=== PATIENT | male | born 1955 | race Caucasian/White ===

== ENCOUNTER 2017-05-01 19:44 | Emergency (ER) | payer OTHER ==
[2017-05-01] MEDS ORDERED: KETOROLAC TROMETHAMINE 30 MG/1ML VIAL ONE (21:37)
[2017-05-01] MEDS ORDERED: KETOROLAC TROMETHAMINE 30 MG/1ML VIAL IVP ONE (21:47)
[2017-05-01 22:55] VITALS: BP 127/83
--- NOTE | 2017-05-01 23:03 | ED Physician Documentation ---
Fall - HISTORIAN Historian: patient, child - HPI Stated Complaint: Right groin/leg pain Chief Complaint: Fall Additional Information: fall fr ladder 2 wks ago better then more activity past two days sig rt groin pain candida on ambulation-getting up or sitting down and standing up. pt more active sprayed field yesterday w/ gator-hardly walk last noct Where: home Context: lost balance r: moderate Associated Symptoms:: no loss of consciousness Location of Pain/Injury: lower back, lower extremity, hip (RT). denies: head, neck, face Injury to Right Extremity: hip, thigh Injury to Left Extremity: none Further Comments: yes (PT EXIBITS EXQ PAIN ON GETTING UP AND SITTING DOWN IN CHAIR-POINTS TO GROIN) - ROS CONST: no problems NEURO: denies: dizziness MS/SKIN/LYMPH: back pain. denies: weakness, numbness, ankle swelling, leg swelling EYES/ENT: none CVS/RESP: none. denies: chest pain GI/: denies: problems urinating, nausea, vomiting - PAST HX Past History: A-Fib (CARDIOVERSION NOW ON SOTALOL) Allergies/Adverse Reactions: Allergies Allergy/AdvReac Type Severity Reaction Status Date / Time No Known Allergies Allergy Verified 05/01/17 20:05 Home Medications: Ambulatory Orders Medication Instructions Recorded Aspirin [Leslie] 325 mg PO QDAY 05/01/17 Atorvastatin Calcium 20 mg PO QDAY 05/01/17 Metoprolol Tartrate [Lopressor] 25 mg PO DAILY 05/01/17 Omeprazole 20 mg PO QDAY 05/01/17 Sotalol HCl [Sotalol] 80 mg PO BID 05/01/17 - SOCIAL HX Smoking History: non-smoker Alcohol Use: heavy (1 PT BOURB[place] PER DAY) Drug Use: none - FAMILY HX Family History: no significant history - VITAL SIGNS Vital Signs: Vital Signs Temp Pulse Resp BP Pulse Ox 98.0 F 72 18 169/96 96 05/01/17 20:00 05/01/17 20:00 05/01/17 20:00 05/01/17 20:00 05/01/17 20:00 - REVIEWED ASSESSMENTS Nursing Assessment Reviewed: Yes ED Results Lab/Radiology - Radiology Radiology Impressions: xray no fx seen but clin compatible w/ occ fx pelvis - Orders Orders: ED Orders Category Date Time Status BILAT HIPS 2V (W/PEL IF DONE) [RAD] Stat Exams 05/01/17 Ordered PELVIS AP 1 OR 2 VIEWS [RAD] Stat Exams 05/01/17 Ordered Ketorolac Tromethamine [Toradol] Med 05/01/17 21:37 Discontinued 30 mg .ROUTE .STK-MED ONE Fall Physical Exam - Physical Exam General Appearance: moderate distress Head: non-tender Neck: non-tender ENT: nml external inspection Resp/CVS: chest non-tender, no ecchymosis, breath sounds nml, no resp. distress , heart sounds nml. No: decreased breath sounds, wheezes, rales Abdomen: soft, non-tender Neuro: oriented x3, CN's nml as tested, sensation nml, motor nml, mood/affect nml Skin: color nml, no rash. No: cyanosis, diaphoresis, pallor, ecchymosis Back: CVA tenderness (R), muscle spasm Extremities: No: pelvis stable, hips non-tender (RT HIP GROIN TENDER W/ MOVEMENT AND PALPATION), unable to bear weight (BUT HURTS) Joint: No: nml ROM (NO HERNIA SEEN FELT PULSES OK) - Sandra Coma Score Eyes Open: Spontaneous Speech: Oriented Motor: Localizes to Pain Discharge Clincal Impression: suspect fx poelvis Referrals: Saniya Delgado MD [Primary Care Provider] - 2 Days Home Medications: Ambulatory Orders Aspirin [Leslie] 325 mg PO QDAY 05/01/17 Atorvastatin Calcium 20 mg PO QDAY 05/01/17 Metoprolol Tartrate [Lopressor] 25 mg PO DAILY 05/01/17 Omeprazole 20 mg PO QDAY 05/01/17 Sotalol HCl [Sotalol] 80 mg PO BID 05/01/17 Comments: home meds tx as fx f/u w/orthopedics or pcp pr rted prn Condition: Good Disposition: 01 HOME, SELF-CARE Decision to Admit: NO Decision Time: 23:02
--- NOTE | 2017-05-02 07:20 | Diagnostic Imaging Report ---
BETH RICH~ [facility] [address] [facility] [address] ~ ~ ~ ~ Report Submission Date: May 01, 2017 10:38:58 PM CDT Patient ~ Study Name: MG ROJAS ~ Date: May 01, 2017 10:11:43 PM CDT ~ Modality Type: CR Gender: M ~ Description: PELVIS : 57 ~ Institution: [facility] Physician: BETH RICH ~ ~ ~ ~ Bilateral hips with AP pelvis, 5 images History: Fall, injury, pain Findings: The osseous, joint and soft tissue structures are normal. Impression: Normal. ~ Electronically signed on May 01, 2017 10:38:58 PM CDT by: Salvatore MAX
== END 2017-05-01 23:00 | disposition home or self-care (01) ==
LOC: ED 19:44
DX: M25.551 Pain in right hip (principal)
CPT/HCPCS: 73521; J1885; S1016

== ENCOUNTER 2017-10-02 06:23 | Emergency (ER) | payer OTHER ==
--- NOTE | 2017-10-02 06:51 | ED Physician Documentation ---
Abdominal Pain - HISTORIAN Historian: friend - HPI Stated Complaint: LLQ abdominal pain Chief Complaint: Abdominal Pain Onset: days ago (lastpmate chili yest pain onset then ate grapes last noct- thought that would lpush it through) Duration: waxing, waning Timing: worse Context: denies: out of country travel, bad food, recent trauma Severity: moderate Quality: pain, sharp Associated Symptoms: none - ROS CONST: no problems GI/: none EYES/ENT: denies: problems with vision MS/SKIN/LYMPH: none NEURO/PSYCH: none - SOCIAL HX Smoking History: non-smoker Alcohol Use: occasionally Drug Use: none - FAMILY HX Family History: no significant history - PAST HX Past History: diverticulitis (at fib resolved now hi cholesterol gerd) - REVIEWED ASSESSMENTS Nursing Assessment Reviewed: Yes Vitals Reviewed: Yes <Angel Estrada - Last Filed: 10/02/17 06:50> <ИВАН RODRIGEZ - Last Filed: 10/02/17 07:59> - HPI Additonal Information: hx diverticular disease but this abd pain mid lateral flank-2 good bms yesterday -normal (Angel Estrada) - PAST HX Home Medications: Ambulatory Orders Medication Instructions Recorded Aspirin [Leslie] 325 mg PO QDAY 05/01/17 Atorvastatin Calcium 20 mg PO QDAY 05/01/17 Metoprolol Tartrate [Lopressor] 25 mg PO DAILY 05/01/17 Omeprazole 20 mg PO QDAY 05/01/17 Allergies/Adverse Reactions: Allergies Allergy/AdvReac Type Severity Reaction Status Date / Time No Known Allergies Allergy Verified 10/02/17 06:35 - VITAL SIGNS Vital Signs: Vital Signs Temp Pulse Resp BP Pulse Ox 81 20 137/78 95 10/02/17 06:25 10/02/17 06:25 10/02/17 06:25 10/02/17 06:25 Progress <Angel Estrada - Last Filed: 10/02/17 06:50> <ИВАН RODRIGEZ - Last Filed: 10/02/17 07:59> - Progress Progress: Reviewed lab and xray results with patient. Reviewed discharge instructions including clear liquid diet, walking, over the counter gas medication. Verbalized understanding. (ИВАН RODRIGEZ) ED Results Lab/Radiology <Angel Estrada - Last Filed: 10/02/17 06:50> <RAINИВАН - Last Filed: 10/02/17 07:59> - Lab Results Lab Results: Lab Results 10/02/17 10/02/17 07:05 07:05 WBC 10.40 K/ul K/ul (4.00-12.00) RBC 4.81 M/ul M/ul (3.90-5.20) Hgb 14.5 g/dL g/dL (12.0-18.0) Hct 43.9 % % (37.0-53.0) MCV 91.3 fl fl (80.0-100.0) MCH 30.2 pg pg (28.0-34.0) MCHC 33.1 g/dL g/dL (30.0-36.0) RDW 13.7 % % (11.3-14.3) Plt Count 237 K/mm3 K/mm3 (130-400) Neut % (Auto) 75.7 % % (39.0-79.0) Lymph % (Auto) 13.6 % L % (16.0-50.0) [place] % (Auto) 6.0 % % (0.0-11.0) Eos % (Auto) 2.6 % % (0.0-6.8) Baso % (Auto) 0.4 (0.0-1.5) Neut # (Auto) 7.9 # k/uL H # k/uL (1.4-7.7) Lymph # (Auto) 1.4 # k/uL # k/uL (0.6-4.0) [place] # (Auto) 0.6 # k/uL # k/uL (0.0-0.9) Eos # (Auto) 0.3 # k/uL # k/uL (0.0-0.6) Baso # (Auto) 0.0 # k/uL # k/uL (0.0-0.5) Reactive Lymphs % 1.7 % % (0.0-5.0) Reactive Lymphs # 0.2 # k/uL # k/uL (0.0-0.8) Sodium 132 mmol/L L mmol/L (136-145) Potassium 3.9 mmol/L mmol/L (3.5-5.1) Chloride 96 mmol/L L mmol/L (98-107) Carbon Dioxide 30 mmol/L mmol/L (22-30) BUN 9 mg/dL mg/dL (9-20) Creatinine 0.80 mg/dL mg/dL (0.66-1.25) Estimated Creat Clear 189 Est GFR ( Amer) > 60 (60 - ) Est GFR (Non-Af Amer) > 60 (60 - ) Glucose 114 mg/dL H mg/dL (74-106) Calcium 8.7 mg/dL mg/dL (8.4-10.2) Total Bilirubin 0.9 mg/dL mg/dL (0.2-1.3) AST 22 U/L U/L (15-46) ALT 41 U/L U/L (13-69) Alkaline Phosphatase 98 U/L U/L (38-126) Total Protein 6.9 g/dL g/dL (6.3-8.2) Albumin 3.7 g/dL g/dL (3.5-5.0) - Radiology Radiology Impressions: HISTORY: 62-year-old male with left lower abdominal pain, history of diverticulitis. COMPARISON: None available TECHNIQUE: Supine and upright views of the abdomen and frontal view of the chest were performed. FINDINGS CHEST: No pneumothorax, pulmonary edema, or consolidative infiltrates. The heart is borderline enlarged. There is thoracic degenerative disc disease with multiple bridging syndesmophytes. There are postoperative changes of lower cervical anterior fusion. ABDOMEN: No abnormal bowel dilatation. Gas is present throughout the colon. The upright film does not demonstrate pathologic air-fluid levels or free air under the diaphragm. No abnormal calcifications are identified overlying the urinary tract. There is lumbar degenerative disc disease. There is a lumbosacral transitional vertebrae. IMPRESSION: 1. No acute intrathoracic process. 2. No evidence of bowel obstruction. 3. Thoracolumbar degenerative disc disease. (ИВАН RODRIGEZ) - Orders Orders: ED Orders Category Date Time Status Place IV Lock 1T Care 10/02/17 06:47 Active ABD SERIES PA CHEST [RAD] Stat Exams 10/02/17 Completed CBC/PLATELET/DIFF Routine Lab 10/02/17 07:05 Completed CMP Routine Lab 10/02/17 07:05 Completed 0.9 % Sodium Chloride [Normal Saline] 1,000 ml Med 10/02/17 07:00 Ordered IV Q1 Magnesium Hydroxide [Milk of Magnesia] Med 10/02/17 07:40 Once 2,400 mg PO NOW ONE Simethicone [Gas-X] Med 10/02/17 07:41 Once 160 mg PO NOW ONE Abdominal Pain Physical Exam - Physical Exam General Appearance: mild distress, moderate distress EENT: eye inspection normal NECK: normal inspection, supple RESPIRATORY: no resp distress, chest non-tender, breath sounds normal CVS: reg rate & rhythm, heart sounds normal ABDOMEN: soft, tenderness, abnormal bowel sounds, guarding (lt flank-no in llq) SKIN: warm/dry, normal color. No: cyanosis, diaphoresis EXTREMITIES: non-tender, normal range of motion NEURO: oriented X3, CN's nml as tested, mood/affect nml <Angel Estrada - Last Filed: 10/02/17 06:50> - Physical Exam Vital Signs: Vital Signs Temp Pulse Resp BP Pulse Ox 81 20 137/78 95 10/02/17 06:25 10/02/17 06:25 10/02/17 06:25 10/02/17 06:25 Discharge <Angel Estrada - Last Filed: 10/02/17 06:50> Decision to Admit: NO Decision Time: 07:57 <ИВАН RODRIGEZ - Last Filed: 10/02/17 07:59> Clincal Impression: Gas pain Abdominal pain Qualifiers: Abdominal location: left lower quadrant Qualified Code(s): R10.32 - Left lower quadrant pain Referrals: Saniya Delgado MD [Primary Care Provider] - 2 Days Additional Instructions: Diet: Clear liquids Sprite/7-up Juices apple, white grape Gatorade/Powerade Jello Popsicles When tolerating clear liquids, advance to bland/brat diet - such as crackers, rice, Bananas, apples/applesauce or toast Over the counter Gas- Ex or simethicone per package directions Increase activity Return to the emergency department or call your doctor, if you are having severe abdominal pain, fever >101.0, or if there is blood in the vomit or diarrhea, or you cannot keep down liquids or solid food. Condition: Stable Disposition: 01 HOME, SELF-CARE
[2017-10-02] MEDS ORDERED: 0.9 % SODIUM CHLORIDE 1,000 ML IV ONE (06:54)
[2017-10-02] MEDS ORDERED: 0.9 % SODIUM CHLORIDE 1,000 ML IV SCH (07:00)
[2017-10-02 07:11] LABS: BASOPHILS % 0.4 (0.0-1.5); EOSINOPHILS % 2.6 % (0.0-6.8); MEAN CORPUSCULAR HEMOGLOBIN 30.2 pg (28.0-34.0); MEAN CORPUSCULAR VOLUME 91.3 fl (80.0-100.0); NEUTROPHILS # 7.9 # k/uL (1.4-7.7)
[2017-10-02 07:30] LABS: eGFR (African) > 60; eGFR (Non-African) > 60
--- NOTE | 2017-10-02 07:36 | Diagnostic Imaging Report ---
BETH RICH [facility] [address] [facility] [address] [address] Report Submission Date: Oct 02, 2017 7:25:04 AM REAMING PRESS OPERATOR Patient Study Name: MG ROJAS Date: Oct 02, 2017 7:11:26 AM REAMING PRESS OPERATOR Modality Type: CR Gender: M Description: CHEST,ABDOMEN : 57 Institution: [facility] Physician: BETH RICH HISTORY: 62-year-old male with left lower abdominal pain, history of diverticulitis. COMPARISON: None available TECHNIQUE: Supine and upright views of the abdomen and frontal view of the chest were performed. FINDINGS CHEST: No pneumothorax, pulmonary edema, or consolidative infiltrates. The heart is borderline enlarged. There is thoracic degenerative disc disease with multiple bridging syndesmophytes. There are postoperative changes of lower cervical anterior fusion. ABDOMEN: No abnormal bowel dilatation. Gas is present throughout the colon. The upright film does not demonstrate pathologic air-fluid levels or free air under the diaphragm. No abnormal calcifications are identified overlying the urinary tract. There is lumbar degenerative disc disease. There is a lumbosacral transitional vertebrae. IMPRESSION: 1. No acute intrathoracic process. 2. No evidence of bowel obstruction. 3. Thoracolumbar degenerative disc disease. Electronically signed on Oct 02, 2017 7:25:04 AM REAMING PRESS OPERATOR by: Sergei MAX
[2017-10-02] MEDS ORDERED: MAGNESIUM HYDROXIDE 400 MG/5 ML 30ML UDC PO ONE (07:40)
[2017-10-02] MEDS ORDERED: SIMETHICONE 80 MG TAB.CHEW PO ONE (07:41)
[2017-10-02 08:09] VITALS: BP 128/71
== END 2017-10-02 08:17 | disposition home or self-care (01) ==
LOC: ED 06:23
DX: R10.32 Left lower quadrant pain (principal)
CPT/HCPCS: 36415; 74022; 80053; 85025; J7030; 96360; 99283; S1016

== ENCOUNTER 2018-07-31 07:34 | Outpatient (CLI) | payer OTHER ==
[2018-07-31 13:33] LABS: eGFR (Non-African) > 60
[2018-07-31 19:41] LABS: BASO % 0.8 % (0.0-1.5); EOS % 2.9 % (0.0-6.8); LYMPH ABS # 1.91 thou/uL (0.60-4.00); MCH. 30.9 pg (28.0-34.0); MCV 94.7 fL (80.0-100.0); MONOCYTE % 8.3 % (0.0-11.0); MONOCYTE ABS # 0.55 thou/uL (0.00-0.90); PLATELET COUNT 261 thou/uL (130-400)
== END 2018-07-31 07:35 ==
LOC: LAB 07:34
PROVIDERS: ATTEND Internal Medicine Cardiovascular Disease
DX: I10 Essential (primary) hypertension (principal); I25.10 Atherosclerotic heart disease of native coronary artery without angina pectoris
CPT/HCPCS: 36415; 80053; 80061; 85025